=== PATIENT | female | born 1955 | race Caucasian/White ===

== ENCOUNTER 2020-04-08 14:37 | Emergency (ER) | payer OTHER, MEDICARE ==
[2020-04-08] MEDS ORDERED: Sodium Chloride 0.9% 10 ML Syringe FLUSH PRN (14:50)
[2020-04-08] MEDS ORDERED: Sodium Chloride 0.9% 1,000 ML IV STA (15:00)
--- NOTE | 2020-04-08 15:10 | EDM.PDOC ---
ED HPI GENERAL MEDICAL PROBLEM - General Chief Complaint: Abdominal Pain Stated Complaint: ABDOMINAL PAIN AND VOMITING X 1HR Time Seen by Provider: 04/08/20 14:41 Source of Information: Reports: Patient, RN Notes Reviewed History Limitations: Reports: No Limitations - History of Present Illness INITIAL COMMENTS - FREE TEXT/NARRATIVE: Patient is a 65-year-old female presenting to the emergency department with complaints of a 1 hour history of intermittent abdominal cramping, one episode of loose stool, as well as vomiting x 1 and nausea. She states that the symptoms have improved significantly. At home, her abdominal pain would go away but then would return. She describes as a sharp, cramping sensation generally associated with nausea or diarrhea. Has had no questionable food intake. Denies any known sick contacts. She has no history of abdominal surgeries or pathology. Denies fever chills, back pain, or dysuria. Abdominal Pain Score (Numeric/FACES): 2 - Related Data Allergies Allergy/AdvReac Type Severity Reaction Status Date / Time meloxicam Allergy Blisters Verified 04/08/20 14:49 meperidine [From Demerol] Allergy Nausea and Verified 04/08/20 14:49 Vomiting morphine Allergy Rash Verified 04/08/20 14:49 Home Meds: Home Meds Dicyclomine [Bentyl] 20 mg PO TID PRN #10 tab 04/08/20 [Rx] Ondansetron [Zofran ODT] 4 mg PO Q6H PRN #15 tab.dis 04/08/20 [Rx] ED ROS GENERAL - Review of Systems Review Of Systems: See Below Constitutional: Reports: No Symptoms. Denies: Fever, Chills HEENT: Reports: No Symptoms Respiratory: Reports: No Symptoms Cardiovascular: Reports: No Symptoms Endocrine: Reports: No Symptoms GI/Abdominal: Reports: Abdominal Pain (Intermittent generalized cramping), Diarrhea, Nausea, Vomiting : Reports: No Symptoms Musculoskeletal: Reports: No Symptoms Skin: Reports: No Symptoms Neurological: Reports: No Symptoms Psychiatric: Reports: No Symptoms Hematologic/Lymphatic: Reports: No Symptoms Immunologic: Reports: No Symptoms ED EXAM, GI/ABD - Physical Exam Exam: See Below General Appearance: Alert, WD/WN, No Apparent Distress Respiratory/Chest: No Respiratory Distress, Lungs Clear, Normal Breath Sounds, No Accessory Muscle Use, Chest Non-Tender Cardiovascular: Normal Peripheral Pulses, Regular Rate, Rhythm, No Edema, No Gallop, No JVD, No Murmur, No Rub GI/Abdominal Exam: Normal Bowel Sounds, Soft, Non-Tender, No Organomegaly, No Distention, No Abnormal Bruit, No Mass, Pelvis Stable Neurological: Alert, Oriented, CN II-XII Intact, Normal Cognition, Normal Gait, Normal Reflexes, No Motor/Sensory Deficits Psychiatric: Normal Affect, Normal Mood Skin Exam: Warm, Dry, Intact, Normal Color, No Rash Course - Vital Signs Last Recorded V/S: Last Vital Signs Temp 97.2 F 04/08/20 14:46 Pulse 94 04/08/20 14:46 Resp 16 04/08/20 14:46 BP 152/78 H 04/08/20 14:46 Pulse Ox 97 04/08/20 14:46 - Orders/Labs/Meds Orders: Active Orders 24 hr Category Date Time Status Peripheral IV Care [RC] . DIRECTED Care 04/08/20 14:50 Active Sodium Chloride 0.9% [Normal Saline] 1,000 ml Med 04/08/20 15:00 Active IV NOW Sodium Chloride 0.9% [Saline Flush] Med 04/08/20 14:50 Active 10 ml FLUSH ASDIRECTED PRN Peripheral IV Insertion Adult [OM.PC] Stat Oth 04/08/20 14:50 Ordered Medication Orders Sodium Chloride (Normal Saline) 1,000 mls @ 150 mls/hr IV NOW STA Stop: 04/08/20 21:39 Last Admin: 04/08/20 15:15 Dose: 150 mls/hr Documented by: FARRAH Sodium Chloride (Saline Flush) 10 ml FLUSH ASDIRECTED PRN PRN Reason: Keep Vein Open Last Admin: 04/08/20 14:54 Dose: 10 ml Documented by: FARRAH Labs: Laboratory Tests 04/08/20 04/08/20 04/08/20 Range/Units 14:50 15:03 15:13 WBC 5.25 (3.98-10.04) K/mm3 RBC 5.05 (3.98-5.22) M/mm3 Hgb 15.3 (11.2-15.7) gm/dl Hct 46.3 H (34.1-44.9) % MCV 91.7 (79.4-94.8) fl MCH 30.3 (25.6-32.2) pg MCHC 33.0 (32.2-35.5) g/dl RDW Std Deviation 45.9 (36.4-46.3) fL Plt Count 271 (182-369) K/mm3 MPV 9.9 (9.4-12.3) fl Neut % (Auto) 47.3 (34.0-71.1) % Lymph % (Auto) 35.0 (19.3-51.7) % Daniels % (Auto) 13.3 H (4.7-12.5) % Eos % (Auto) 3.4 (0.7-5.8) Baso % (Auto) 0.6 (0.1-1.2) % Neut # (Auto) 2.48 (1.56-6.13) K/mm3 Lymph # (Auto) 1.84 (1.18-3.74) K/mm3 Daniels # (Auto) 0.70 H (0.24-0.36) K/mm3 Eos # (Auto) 0.18 (0.04-0.36) K/mm3 Baso # (Auto) 0.03 (0.01-0.08) K/mm3 Sodium 145 (136-145) mEq/L Potassium 4.1 (3.5-5.1) mEq/L Chloride 106 (98-107) mEq/L Carbon Dioxide 29 (21-32) mEq/L Anion Gap 14.1 (5-15) BUN 15 (7-18) mg/dL Creatinine 0.9 (0.55-1.02) mg/dL Est Cr Clr Drug Dosing 60.81 mL/min Estimated GFR (MDRD) > 60 (>60) mL/min BUN/Creatinine Ratio 16.7 (14-18) Glucose 94 (80-115) mg/dL Calcium 9.8 (8.5-10.1) mg/dL Magnesium (1.8-2.4) mg/dl Total Bilirubin 0.5 (0.2-1.0) mg/dL AST 26 (15-37) U/L ALT 28 (14-59) U/L Alkaline Phosphatase 62 (46-116) U/L C-Reactive Protein < 0.2 (<1.0) mg/dL Total Protein 8.4 H (6.4-8.2) g/dl Albumin 4.1 (3.4-5.0) g/dl Globulin 4.3 gm/dL Albumin/Globulin Ratio 1.0 (1-2) Lipase 151 (73-393) U/L Urine Color Yellow (Yellow) Urine Appearance Clear (Clear) Urine pH 7.0 (5.0-8.0) Ur Specific [place] 1.025 (1.005-1.030) Urine Protein Negative (Negative) Urine Glucose (UA) Negative (Negative) Urine Ketones Negative (Negative) Urine Occult Blood Negative (Negative) Urine Nitrite Negative (Negative) Urine Bilirubin Negative (Negative) Urine Urobilinogen 0.2 (0.2-1.0) Ur Leukocyte Esterase Negative (Negative) Urine RBC 0-5 (0-5) /hpf Urine WBC 0-5 (0-5) /hpf Ur Squamous Epith Cells 0-5 (0-5) /hpf Urine Bacteria Few (FEW) /hpf Urine Mucus Few (FEW) /hpf 04/08/20 Range/Units 15:13 WBC (3.98-10.04) K/mm3 RBC (3.98-5.22) M/mm3 Hgb (11.2-15.7) gm/dl Hct (34.1-44.9) % MCV (79.4-94.8) fl MCH (25.6-32.2) pg MCHC (32.2-35.5) g/dl RDW Std Deviation (36.4-46.3) fL Plt Count (182-369) K/mm3 MPV (9.4-12.3) fl Neut % (Auto) (34.0-71.1) % Lymph % (Auto) (19.3-51.7) % Daniels % (Auto) (4.7-12.5) % Eos % (Auto) (0.7-5.8) Baso % (Auto) (0.1-1.2) % Neut # (Auto) (1.56-6.13) K/mm3 Lymph # (Auto) (1.18-3.74) K/mm3 Daniels # (Auto) (0.24-0.36) K/mm3 Eos # (Auto) (0.04-0.36) K/mm3 Baso # (Auto) (0.01-0.08) K/mm3 Sodium (136-145) mEq/L Potassium (3.5-5.1) mEq/L Chloride (98-107) mEq/L Carbon Dioxide (21-32) mEq/L Anion Gap (5-15) BUN (7-18) mg/dL Creatinine (0.55-1.02) mg/dL Est Cr Clr Drug Dosing mL/min Estimated GFR (MDRD) (>60) mL/min BUN/Creatinine Ratio (14-18) Glucose (80-115) mg/dL Calcium (8.5-10.1) mg/dL Magnesium 2.4 (1.8-2.4) mg/dl Total Bilirubin (0.2-1.0) mg/dL AST (15-37) U/L ALT (14-59) U/L Alkaline Phosphatase (46-116) U/L C-Reactive Protein (<1.0) mg/dL Total Protein (6.4-8.2) g/dl Albumin (3.4-5.0) g/dl Globulin gm/dL Albumin/Globulin Ratio (1-2) Lipase (73-393) U/L Urine Color (Yellow) Urine Appearance (Clear) Urine pH (5.0-8.0) Ur Specific [place] (1.005-1.030) Urine Protein (Negative) Urine Glucose (UA) (Negative) Urine Ketones (Negative) Urine Occult Blood (Negative) Urine Nitrite (Negative) Urine Bilirubin (Negative) Urine Urobilinogen (0.2-1.0) Ur Leukocyte Esterase (Negative) Urine RBC (0-5) /hpf Urine WBC (0-5) /hpf Ur Squamous Epith Cells (0-5) /hpf Urine Bacteria (FEW) /hpf Urine Mucus (FEW) /hpf Meds: Medications Generic Name Dose Route Start Last Admin Trade Name Freq PRN Reason Stop Dose Admin Sodium Chloride 1,000 mls @ 150 mls/hr 04/08/20 15:00 04/08/20 15:15 Normal Saline IV 04/08/20 21:39 150 mls/hr NOW STA Administration Sodium Chloride 10 ml 04/08/20 14:50 04/08/20 14:54 Saline Flush FLUSH 10 ml ASDIRECTED PRN Administration Keep Vein Open - Re-Assessments/Exams Free Text/Narrative Re-Assessment/Exam: Patient is a 65-year-old female presenting to the emergency department with com plaints of a 1 hour history of intermittent abdominal cramping, nausea with 1 episode of vomiting, and one episode of diarrhea. Symptoms began after eating lunch. Prior to this, she was feeling well. At the time of my exam, her symptoms have essentially resolved. She has no abdominal tenderness. Denies feeling nauseous. Discussed that she is likely suffering from a viral gastroenteritis, however we will complete a work-up including CBC, CMP, CRP, lipase, urinalysis, and an abdomen 2 view x-ray. She denies the need for nausea medications at this time. I have ordered a liter of NS bolus. 04/08/20 16:00 Patient's work-up is grossly unremarkable. Abdomen flat and upright x-ray shows no acute findings. Hematology was normal. Urinalysis shows no signs of infection. Patient has had no recurrence of abdominal pain or nausea. Discussed that she is likely suffering from a mild viral gastroenteritis. I will send a prescription for Zofran and dicyclomine should the symptoms return. Discussed return precautions. Discharge instructions as documented. Departure - Departure Time of Disposition: 16:00 Disposition: Home, Self-Care 01 Condition: Good Clinical Impression: Gastroenteritis - Discharge Information *PRESCRIPTION DRUG MONITORING PROGRAM REVIEWED*: No *COPY OF PRESCRIPTION DRUG MONITORING REPORT IN PATIENT LIANNE: No Prescriptions: Dicyclomine [Bentyl] 20 mg PO TID PRN #10 tab PRN Reason: Abdominal Pain Ondansetron [Zofran ODT] 4 mg PO Q6H PRN #15 tab.dis PRN Reason: Nausea/Vomiting Instructions: Viral Gastroenteritis, Adult, [id number] Referrals: Venecia Carias, [facility] [Primary Care Provider] - Forms: ED Department Discharge Additional Instructions: You were seen in the emergency department today for acute onset of abdominal cramping, diarrhea, nausea, and vomiting. Work-up included blood work, urinalysis, and an abdominal x-ray. Results of your work-up were found to be normal. As we discussed, you are likely suffering from a viral gastroenteritis. Recommend clear liquid diet for at least the next 24 hours and then advance as tolerated. A prescription for Zofran for nausea and dicyclomine for abdominal cramping has been sent to [facility]. Use these medications as prescribed. If you should experience any new or worsening symptoms of concern, please do not hesitate to return to the emergency department for reevaluation. Sepsis Event Note (ED) - Evaluation Sepsis Screening Result: No Definite Risk - Focused Exam Vital Signs: Vital Signs Temp Pulse Resp BP Pulse Ox 04/08/20 14:46 97.2 F 94 16 152/78 H 97 - My Orders Last 24 Hours: My Active Orders 04/08/20 14:50 Peripheral IV Care [RC] . DIRECTED Sodium Chloride 0.9% [Saline Flush] 10 ml FLUSH ASDIRECTED PRN Peripheral IV Insertion Adult [OM.PC] Stat 04/08/20 15:00 Sodium Chloride 0.9% [Normal Saline] 1,000 ml IV NOW - Assessment/Plan Last 24 Hours: My Active Orders 04/08/20 14:50 Peripheral IV Care [RC] . DIRECTED Sodium Chloride 0.9% [Saline Flush] 10 ml FLUSH ASDIRECTED PRN Peripheral IV Insertion Adult [OM.PC] Stat 04/08/20 15:00 Sodium Chloride 0.9% [Normal Saline] 1,000 ml IV NOW
--- NOTE | 2020-04-08 15:35 | CR ---
Abdomen: Upright and supine view of the abdomen was obtained. Comparison: No prior abdominal imaging is available. Density is noted within the lower stomach presumably representing ingested material. Bowel gas pattern is normal. No abnormal calcifications or soft tissue abnormality is appreciated. No free air is appreciated. No abnormal calcifications are seen. Bony structures appear within normal limits. Impression: 1. Findings as noted above. 2. Nothing acute is definitely appreciated. Diagnostic code #2
== END 2020-04-08 16:27 | disposition home or self-care (01) ==
LOC: JD.ED 14:37
DX: K52.9 Noninfective gastroenteritis and colitis, unspecified (principal); Z88.8 Allergy status to other drugs, medicaments and biological substances; Z88.5 Allergy status to narcotic agent
CPT/HCPCS: 36415; 74019; 80053; 81001; 83690; 83735; 85025; 86140; 99284; J7030; 99283

== ENCOUNTER 2020-12-18 18:27 | Emergency (ER) | payer MEDICARE, BC ==
--- NOTE | 2020-12-18 19:09 | EDM.PDOC ---
ED HPI GENERAL MEDICAL PROBLEM - General Chief Complaint: Skin Complaint Stated Complaint: RT HAND SKIN COMPLAINT Time Seen by Provider: 12/18/20 18:46 Source of Information: Reports: Patient History Limitations: Reports: No Limitations - History of Present Illness INITIAL COMMENTS - FREE TEXT/NARRATIVE: Mrs. Singh is a very pleasant 65-year-old woman who now presents the ED stating that she developed redness and swelling to her right 3rd finger and dorsal aspect of her right hand today, after being stung by a wasp on the proximal phalanx of her right third finger yesterday, 12/17/2020. The area of swelling has been intermittently pruritic. She is concerned, because, she states, she developed a cellulitis after being stung by a bee or wasp on her thigh a few years ago. No recent fever. The patient states that she took 1 tablet of Benadryl about 1 hour prior to coming to the ED. Prior to yesterday, the patient denies having a recent fever, chills, sore th roat, ear pain, nasal or sinus congestion, cough, dyspnea, chest pain, palpitations, nausea, vomiting, constipation, diarrhea, abdominal pain, urinary symptoms, recent weight gain or weight loss, recent bloody bowel movements or black bowel movements, recent joint aches, headaches, or rashes. The patient's PCP is Venecia Carias NP. She has not received a COVID vaccination. - Related Data Allergies Allergy/AdvReac Type Severity Reaction Status Date / Time meloxicam Allergy Blisters Verified 12/18/20 18:49 meperidine [From Demerol] Allergy Nausea and Verified 12/18/20 18:49 Vomiting morphine Allergy Rash Verified 12/18/20 18:49 Home Meds: Home Meds Alendronate [Fosamax] 70 mg PO WEEKLY 12/18/20 [History] Cholecalciferol (Vitamin D3) [Vitamin D3] 1,000 mg PO DAILY 12/18/20 [History] Enalapril [Vasotec] 5 mg PO DAILY 12/18/20 [History] Past Medical History Cardiovascular History: Reports: Hypertension Genitourinary History: Reports: Renal Calculus - Infectious Disease History Infectious Disease History: Reports: Novel Coronavirus - Past Surgical History HEENT Surgical History: Reports: Oral Surgery (dental extractions) GI Surgical History: Reports: Other (See Below) (Repair of cystocele and rectocele) Female Surgical History: Reports: Hysterectomy (partial), Other (See Below) (Bladder suspension) Musculoskeletal Surgical History: Reports: ORIF (left ankle), Other (See Below) (Left elbow repair) Social & Family History - Tobacco Use Tobacco Use Status *Q: Never Tobacco User - Alcohol Use Alcohol Use History: Yes Alcohol Use Frequency: Rarely - Recreational Drug Use Recreational Drug Use: No - Living Situation & Occupation Living situation: Reports: , with Spouse, with Family (Son) Occupation: Retired ED ROS GENERAL - Review of Systems Review Of Systems: Comprehensive ROS is negative, except as noted in HPI. ED EXAM, SKIN/RASH Exam: See Below Exam Limited By: No Limitations General Appearance: Alert, WD/WN, No Apparent Distress Extremities: Other (Mild erythema with some swelling noted to the proximal phalanx of the right third finger, particularly the radial side, extending to the dorsal aspect of the hand, involving the third MCP. Minimal associated calor. Neurovascular status of the right hand is intact.) Course - Vital Signs Last Recorded V/S: Last Vital Signs Temp 36.9 C 12/18/20 18:46 Pulse 87 12/18/20 18:46 Resp 16 12/18/20 18:46 BP 171/101 H 12/18/20 18:46 Pulse Ox 98 12/18/20 18:46 - Re-Assessments/Exams Free Text/Narrative Re-Assessment/Exam: 12/18/20 19:05 The patient is suffering from a local reaction to a wasp sting to her right 3rd finger, not cellulitis. Treatment includes cold compresses, prednisone to help speed reduction of swelling, NSAIDs for discomfort, and a nonsedating antihistamine for pruritus. Antibiotics are not indicated. Duration is typically 10 to 12 days, but can be reduced to closer to 5 with prednisone, however, the patient would prefer to not take prednisone. Departure - Departure Time of Disposition: 19:07 Disposition: Home, Self-Care 01 Condition: Good Clinical Impression: Local reaction to insect sting - Discharge Information *PRESCRIPTION DRUG MONITORING PROGRAM REVIEWED*: Not Applicable *COPY OF PRESCRIPTION DRUG MONITORING REPORT IN PATIENT LIANNE: Not Applicable Instructions: Bee, Wasp, or Hornet Sting, Adult Referrals: Venecia Carias [employer] [Primary Care Provider] - Forms: ED Department Discharge Additional Instructions: You were seen in the emergency room after developing redness, swelling, and itchiness to your right middle finger in the back of your right hand after being stung by a wasp yesterday. Based on your history and physical examination, you are suffering from a local reaction to an insect sting, not cellulitis. Treatment consists of cool compresses to the area, NSAIDs, such as ibuprofen, for discomfort, and a nonsedating antihistamine as needed for itchiness. Treatment with the steroid prednisone, to help speed reduction of swelling, was offered, but declined. You should expect resolution of your symptoms within 10 to 12 days. If any other problems, please do not hesitate to return to the ER. Sepsis Event Note (ED) - Evaluation Sepsis Screening Result: No Definite Risk - Focused Exam Vital Signs: Vital Signs Temp Pulse Resp BP Pulse Ox 12/18/20 18:46 36.9 C 87 16 171/101 H 98
== END 2020-12-18 19:21 | disposition home or self-care (01) ==
LOC: JD.ED 18:27
DX: T63.461A Toxic effect of venom of wasps, accidental (unintentional), initial encounter (principal); I10 Essential (primary) hypertension; Z88.5 Allergy status to narcotic agent; Z88.8 Allergy status to other drugs, medicaments and biological substances
CPT/HCPCS: 99281

== ENCOUNTER → 2023-01-11 | Day surgery (SDC) | payer MEDICARE, BC ==
[~2023-01-11] MED LIST: Cefuroxime 10 MG/ML SYRINGE EYELF SCH; Lidocaine 1% PF 2 ML SDV INJECT SCH; Pilocarpine 4% Ophth Soln 15 ML Bot EYELF SCH
[2023-01-11] MEDS: Polymyxin B/Trimethoprim 10 ML Bottle EYELF SCH ×3 (10:51→11:36)
[2023-01-11] MEDS: Brimonidine 0.2% Ophth Soln 5 ML Bottle EYELF SCH ×3 (10:59→11:44)
[2023-01-11] MEDS: Phenylephrine 2.5% Ophth Soln 2 ML Bot EYELF SCH ×6 (11:02→11:47)
[2023-01-11] MEDS: Tropicamide 1% Ophth Soln 3 ML Bottle EYELF SCH ×4 (11:07→11:50)
[2023-01-11] MEDS: Tetracaine HCl/PF 0.5% 4 ML Bottle EYEBOTH SCH ×4 (11:31→12:05)
== END ==
LOC: JD.SDS 11:04
PROVIDERS: ATTEND Ophthalmology
DX: H25.813 Combined forms of age-related cataract, bilateral (principal); H11.153 Pinguecula, bilateral; H43.813 Vitreous degeneration, bilateral; H02.831 Dermatochalasis of right upper eyelid; H18.513 Endothelial corneal dystrophy, bilateral; H18.599 Other hereditary corneal dystrophies, unspecified eye; I10 Essential (primary) hypertension; Z83.518 Family history of other specified eye disorder; Z79.899 Other long term (current) drug therapy; Z88.8 Allergy status to other drugs, medicaments and biological substances; Z88.5 Allergy status to narcotic agent
CPT/HCPCS: 66984; A9270; J0697; J3490

== ENCOUNTER 2023-02-22 08:30 | Day surgery (SDC) | payer MEDICARE, BC ==
[~2023-02-22 08:30] MED LIST changes: -Cefuroxime 10 MG/ML SYRINGE EYELF SCH; +Cefuroxime 10 MG/ML SYRINGE EYERT SCH; -Pilocarpine 4% Ophth Soln 15 ML Bot EYELF SCH; +Pilocarpine 4% Ophth Soln 15 ML Bot EYERT SCH
[2023-02-22] MEDS: Polymyxin B/Trimethoprim 10 ML Bottle EYERT SCH ×3 (09:02→10:51)
[2023-02-22] MEDS: Brimonidine 0.2% Ophth Soln 5 ML Bottle EYERT SCH ×3 (09:15→10:51)
[2023-02-22] MEDS: Phenylephrine 2.5% Ophth Soln 2 ML Bot EYERT SCH ×5 (09:19→10:32)
[2023-02-22] MEDS: Tropicamide 1% Ophth Soln 3 ML Bottle EYERT SCH ×4 (09:25→10:05)
[2023-02-22] MEDS: Tetracaine HCl/PF 0.5% 4 ML Bottle EYEBOTH SCH ×4 (10:26→10:40)
== END 2023-02-22 11:00 | disposition home or self-care (01) ==
LOC: JD.SDS 08:30
PROVIDERS: ATTEND Ophthalmology
DX: Q12.0 Congenital cataract (principal); I10 Essential (primary) hypertension; H52.31 Anisometropia; Z96.1 Presence of intraocular lens; Z79.899 Other long term (current) drug therapy; Z98.890 Other specified postprocedural states
CPT/HCPCS: 66984; A9270; J0697; 00142; J3490